=== PATIENT | male | born 2000 | race Caucasian/White ===

== ENCOUNTER 2020-02-20 06:34 | Emergency (ER) | payer OTHER ==
[~2020-02-20] VITALS: Ht 188 cm; Wt 79.4 kg
== END 2020-02-20 08:40 | disposition home or self-care (01) ==
LOC: ER 06:34
DX: S61.210A Laceration without foreign body of right index finger without damage to nail, initial encounter (principal); F17.210 Nicotine dependence, cigarettes, uncomplicated; W45.8XXA Other foreign body or object entering through skin, initial encounter
CPT/HCPCS: 12001; 90714; 99282-25